=== PATIENT | male | born 1935 | race Caucasian/White ===

== ENCOUNTER 2020-10-10 10:29 | Outpatient (CLI) | payer MEDICARE, SELFPAY ==
--- NOTE | 2020-10-10 10:49 | XRR_ITS ---
PROCEDURE INFORMATION: Exam: XR Cervical Spine Exam date and time: 10/10/2020 10:49 AM Age: 84 years old Clinical indication: Neck pain; Additional info: Chronic neck pain/kyphosis, thoracic region TECHNIQUE: Imaging protocol: XR of the cervical spine. Views: 6 or more views. COMPARISON: CR Chest 2 views* [id number] 12/15/2018 6:03 PM FINDINGS: Bones/joints: Osteopenia and degenerative change. No instability. Soft tissues: Unremarkable. XR/XR cervical spine min 6V [id number] IMPRESSION: Osteopenia and degenerative change.
== END 2020-10-10 10:30 | disposition home or self-care (01) ==
PROVIDERS: PCP Electrodiagnostic Medicine; Visit Provider Electrodiagnostic Medicine
DX: M54.2 Cervicalgia (principal); M40.14 Other secondary kyphosis, thoracic region; I10 Essential (primary) hypertension; E03.9 Hypothyroidism, unspecified; D18.03 Hemangioma of intra-abdominal structures; M85.88 Other specified disorders of bone density and structure, other site
CPT/HCPCS: 72052

== ENCOUNTER 2020-10-28 09:13 | Outpatient (CLI) | payer MEDICARE, SELFPAY ==
--- NOTE | 2020-10-28 09:36 | MR_ITS ---
WS: [id number] MRI CERVICAL SPINE NONCONTRAST TECHNIQUE: Sagittal T1, T2 and STIR imaging. Axial T2, gradient, and fiesta imaging. CLINICAL INFORMATION: CERVICAL RADICULOPATHY/ CHRONIC NECK PAIN COMPARISON: None. FINDINGS: Straightening of the normal cervical lordosis. Cord signal is normal. No high-grade central canal juan nosis. Slight listhesis C5 on C6. Disc space narrowing worse at C5-C6 and C6-C7. C2-C3: Mild left and no significant right foraminal narrowing. Mild left facet arthropathy. C3-C4: Mild disc bulging with osteophytic ridging. Moderate left and mild right bony foraminal narrow ing. Moderate left facet arthropathy. C4-C5: Mild disc bulging with osteophytic ridging. Mild central canal stenosis. Moderate bilateral zo ny foraminal narrowing with moderate facet arthropathy. C5-C6: Slight retrolisthesis C5 on C6 with mild central canal stenosis. Moderate bilateral bony fora viviana narrowing. Moderate facet arthropathy. C6-C7: Mild disc bulging with osteophytic ridging. Mild left greater than right bony foraminal narrow ing. Moderate facet arthropathy. C7-T1: Grade 1 anterolisthesis C7 on T1. Tiny central protrusion. Spinal canal is patent. Mild bilate ral bony foraminal narrowing. Moderate facet arthropathy. Mild degenerative edema at the C1-2 articulation. MR/MR cervical spin wo con* [id number] IMPRESSION: 1. Straightening of the normal cervical lordosis with moderate spondylitic jocelyn nges. 2. Slight retrolisthesis C5 on C6. Slight anterolisthesis C7 on T1. 3. Multilevel mild to moderate bony foraminal narrowing worse at left C3-4, bi lateral C4-5, and left greater than right C5-C6. 4. Mild central canal stenosis C4-C5 and C5-C6.
== END 2020-10-28 09:14 | disposition home or self-care (01) ==
LOC: RADWPI 09:15
PROVIDERS: PCP Electrodiagnostic Medicine; Visit Provider Electrodiagnostic Medicine
DX: M54.12 Radiculopathy, cervical region (principal); M54.2 Cervicalgia; M40.14 Other secondary kyphosis, thoracic region; M48.02 Spinal stenosis, cervical region
CPT/HCPCS: 72141

== ENCOUNTER 2020-11-20 06:00 | Outpatient (RCR) | payer MEDICARE, SELFPAY | END 2020-12-20 23:59 | disposition home or self-care (01) | LOC: SPT 06:00 | PROVIDERS: PCP Electrodiagnostic Medicine; Referring Provider Electrodiagnostic Medicine; Visit Provider Electrodiagnostic Medicine | DX: M54.12 Radiculopathy, cervical region (principal); M54.2 Cervicalgia | CPT/HCPCS: 97110; 97162 ==

== ENCOUNTER 2020-12-21 06:00 | Outpatient (RCR) | payer MEDICARE, SELFPAY | END 2021-01-19 23:59 | disposition home or self-care (01) | LOC: SPT 06:00 | PROVIDERS: PCP Electrodiagnostic Medicine; Referring Provider Electrodiagnostic Medicine; Visit Provider Electrodiagnostic Medicine | DX: G89.29 Other chronic pain (principal); M54.2 Cervicalgia; M54.12 Radiculopathy, cervical region | CPT/HCPCS: 97110 ==

== ENCOUNTER → 2022-03-21 09:50 | Outpatient (BNVA) | payer MEDICARE, SELFPAY | PROVIDERS: PCP Electrodiagnostic Medicine; Visit Provider Podiatrist Foot & Ankle Surgery | DX: M79.671 Pain in right foot (principal); M79.89 Other specified soft tissue disorders | CPT/HCPCS: 73650; 99204 ==

== ENCOUNTER → 2022-03-27 15:55 | Outpatient (BNVA) | payer MEDICARE, SELFPAY | PROVIDERS: PCP Electrodiagnostic Medicine; Visit Provider Podiatrist Foot & Ankle Surgery | DX: M79.89 Other specified soft tissue disorders (principal); M79.671 Pain in right foot | CPT/HCPCS: 99213 ==

== ENCOUNTER → 2022-09-25 13:25 | Outpatient (BNVA) | payer MEDICARE, SELFPAY | PROVIDERS: PCP Electrodiagnostic Medicine; Visit Provider Podiatrist Foot & Ankle Surgery | DX: M79.671 Pain in right foot (principal); M79.89 Other specified soft tissue disorders; B35.3 Tinea pedis | CPT/HCPCS: 73650; 99213 ==

== ENCOUNTER → 2022-11-02 10:57 | Outpatient (BNVA) | payer MEDICARE, SELFPAY | PROVIDERS: PCP Electrodiagnostic Medicine; Visit Provider Podiatrist Foot & Ankle Surgery | DX: M79.671 Pain in right foot (principal); M79.89 Other specified soft tissue disorders | CPT/HCPCS: 99213 ==

== ENCOUNTER → 2022-11-09 11:17 | Outpatient (BNVA) | payer MEDICARE, SELFPAY | PROVIDERS: PCP Electrodiagnostic Medicine; Visit Provider Podiatrist Foot & Ankle Surgery | DX: M79.671 Pain in right foot (principal); M79.89 Other specified soft tissue disorders | CPT/HCPCS: 99214 ==

== ENCOUNTER 2022-11-21 05:46 | Day surgery (SDC) | payer MEDICARE, SELFPAY ==
[2022-11-20 10:54] VITALS: BMI 20.7
--- NOTE | 2022-11-21 05:56 | ECG_ITS ---
[facility] Test Date: 2022-11-21 Pat Name: Geoff Freeman Department: Room: Gender: Male Sales Team Member: : [id number] Requested By: Jamal Josue Order Number: [id number] Ursula MD: Adela Matos M.D. Measurements Intervals [place] Rate: 60 P: 25 [place]: 269 QRS: -86 QRSD: 175 T: 84 QT: 482 QTc: 482 Interpretive Statements ELECTRONIC VENTRICULAR PACEMAKER ABNORMAL RHYTHM ECG No previous ECG available for comparison Electronically Signed On 11-21-2022 23:30:48 CDT by Adela Matos M.D. [id number]
[2022-11-21 06:01] VITALS: BMI 20.7
[2022-11-21 06:07] VITALS: BP 119/62; PULSE 61; RESP 17; TEMP 36.3; O2SAT 97
[2022-11-21] MEDS: acetaminophen 1,000 MG/100 ML PIGGYBACK 400 MG IV (06:29)
[2022-11-21] MEDS: sodium chloride 0.9% 1,000 ML 30 ML IV (06:31)
--- NOTE | 2022-11-21 06:43 | W.PM.OPSUD ---
Surgery/Procedure H&P Update DATE OF PROCEDURE: November 21, 2022 DATE H&P PERFORMED: 11/09/22 CHANGES TO PREVIOUS DOCUMENTATION: No changes PREOP DIAGNOSIS: Right foot soft tissue mass PLANNED PROCEDURE: Operation Date: 11/21/22 07:00 Proposed Procedures p Right foot soft tissue mass excision greater than 1.5 cm CPT 93036,?M79.9(Right) - John Forde DPM
[2022-11-21] MEDS: ceFAZolin 2,000 MG in sodium chloride 0.9% (plus) 50 ML 100 MG IV (07:00)
[2022-11-21 07:39] VITALS: BP 95/54; PULSE 60; RESP 15; TEMP 36.2; O2SAT 94
--- NOTE | 2022-11-21 07:41 | PC.NURSE ---
Pt arrived to PACU, resting comfortably, O2 at 6L/min via simple mask in place. Dressing and post op shoe to right foot C/D/I, right toes p/w/d, cap refill < 3 seconds. FOB elevated.
[2022-11-21 07:44] VITALS: BP 109/61; PULSE 61; RESP 18; O2SAT 95
[2022-11-21 07:49] VITALS: BP 115/65; PULSE 60; RESP 17; O2SAT 93
[2022-11-21 07:54] VITALS: BP 99/59; PULSE 64; RESP 17; TEMP 36.6; O2SAT 92
[2022-11-21 08:02] VITALS: BP 102/61; PULSE 61; RESP 16; TEMP 36; O2SAT 92
--- NOTE | 2022-11-21 09:04 | ANES.PREANE2 ---
Pre-Anesthetic Assessment Height/Weight: Height 1.75 m Weight 63.503 kg Temp Pulse Resp BP Pulse Ox O2 Del Method O2 Flow Rate 96.8 F L 61 16 102/61 92 Room Air 6 11/21/22 08:02 11/21/22 08:02 11/21/22 08:02 11/21/22 08:02 11/21/22 08:02 11/21/22 07:54 11/21/22 07:44 Preop Diagnosis: Right foot soft tissue mass Operation Date: 11/21/22 07:00 Proposed Procedures p Right foot soft tissue mass excision greater than 1.5 cm CPT 26130,?M79.9(Right) - John Forde DPM Familial anesthetic complications: none Was Beta Erika taken within 24 hours: N/A Was Clonidine taken within 24 hours: N/A Last intake: Intake Last Liquid Date 11/20/22 Last Liquid Time 20:00 Last Solid Date 11/20/22 Last Solid Time 20:00 Social No alcohol and No tobacco Exam alert, oriented x 3, clear to auscultation bilaterally and regular rate & rhythm Airway Submandibular: within normal limits Cervical ROM: within normal limits Mallampati: Class II Dentition: false CV/HEM Arrythmia and Murmur Pacemaker, h/o MVR Metabolic Thyroid Disease Anesthetic Plan ASA status: 3 Anesthesia: MAC Medications/Allergies Home Medications Medication Instructions Recorded Confirmed Last Taken Type ascorbic acid (vitamin C) 500 mg 500 mg PO 1XD 06/29/20 11/20/22 11/19/22 History capsule cholecalciferol (vitamin D3) 10 10 mcg PO DAILY 06/29/20 11/20/22 11/19/22 History mcg (400 unit) capsule coenzyme Q10 100 mg capsule 100 mg PO DAILY 06/29/20 11/20/22 11/19/22 History (CoQ-10) levothyroxine 100 mcg tablet 100 mcg PO DAILY 06/29/20 11/20/22 11/20/22 History magnesium oxide 500 mg tablet 500 mg PO DAILY 06/29/20 11/20/22 11/19/22 History mecobalamin (vitamin B12) 1,000 1,000 mcg sublingual DAILY 06/29/20 11/20/22 11/19/22 History mcg disintegrating tablet,sublingual sertraline 50 mg tablet (Zoloft) 50 mg PO DAILY 06/29/21 11/20/22 11/19/22 History apixaban 2.5 mg tablet (Eliquis) 2.5 mg PO BID 03/05/22 11/20/22 11/20/22 History tramadol 50 mg tablet 50 mg PO Q8H PRN pain #20 tabs 11/21/22 Unknown Rx Allergies Allergy/AdvReac Type Severity Reaction Status Date / Time No Known Allergies Allergy Verified 11/20/22 10:46 Current Medications Generic Name Dose Route Start Last Admin Trade Name Freq PRN Reason Stop Dose Admin Sodium Chloride 1,000 mls @ 30 mls/hr 11/21/22 06:00 11/21/22 06:31 Sodium Chloride 0.9% IV 11/22/22 05:59 30 mls/hr .Q24H QUAN Administration PFSH Anesthesia Medical History Hypothyroid Kyphosis Surgical History H/O mitral valve repair History of appendectomy History of inguinal hernia repair right Social History Smoking and tobacco status: never smoked Alcohol intake: current Alcohol intake frequency: holidays/special occasions only Alcohol type: wine Substance/Drug Use: never Data Anesthesia Cardiac Studies: No Data to Display
--- NOTE | 2022-11-21 09:43 | P.OP_ITS ---
Operative Report Date of procedure: November 21, 2022 Pre-op diagnosis: Preop Diagnosis Right foot soft tissue mass Post-op diagnosis: Same Post-op findings: Darkened and discolored indurated soft tissue mass with associated adipose tissue measuring approximate 3.0 x 2.0 cm well-circumscribed edges. No remaining mass remained Procedure done: Right foot soft tissue mass excision greater than 1.5 cm CPT 38080 Implants: None Specimens removed/disposition: Right foot soft tissue mass, aerobic and anaerobic cultures Pathology: Soft tissue mass right foot sent to pathology Surgeon: Jia Jaime.P.Kenan Estimated blood loss: Less than 10 cc Complications: None Findings: See above Procedure: Patient is a 86-year-old male that has a history of right foot soft tissue mass. The patient has had the aforementioned chief complaint for some time. Conservative treatment measures have been attempted and the patient has opted for surgical intervention at this time. A lengthy discussion regarding the procedure, including risks and complications has been had with the patient and is noted in the recent clinic note. Written and verbal consent have been obtained. All patient questions have been answered to the patient?s satisfaction . No written or verbal guarantees have been given or implied. The patient has been NPO since midnight. The history has been reviewed and the history and physical is current. The signed consent was confirmed and placed in the patient chart. Patient imaging has been reviewed and is consistent with the diagnosis. Under mild sedation, the patient was brought into the operating room and placed on the table in the supine position. IV antibiotics were given by the anesthesia team as preoperative surgical prophylaxis. IV sedation was then performed by the anesthesiateam. A local field block was then performed using 0.5% Marcaine plain. A pneumatic tourniquet was then placed about the right ankle. The operative extremity was then prepped and draped in the usual fashion. The extremity was then elevated and exsanguinated before the tourniquet was inflated to 250 mmHg. After inflation, the following procedure was then performed. Attention was directed to the lateral aspect of the right heel where a firm palpable nodule was appreciated. A 3.5 cm incision was made overlying this area. Dissection was carried down through subcutaneous tissue to the level of the soft tissue mass which was clearly visualized. Using blunt dissection it was dissected out circumferentially to expose the mass in total. It was noted to be dark and and discoloration and indurated but well-defined. It was then removed from the operative field to be sent to pathology for specimen. Cultures aerobic and anaerobic were taken at this point. The site was examined and no further soft tissue mass remained. The site was then irrigated with copious amounts of sterile saline before attention was directed to closure. Skin was closed with 3-0 nylon in horizontal mattress fashion. The tourniquet was let down and good hyperemic response was noted to all digits of the right foot. The incision site was dressed with Xeroform, 4 x 4 gauze, Kerlix and Abdiaziz. The patient tolerated the procedure and anesthesia well and without complication. The patient was transported from the operating room to the recovery room with vital signs stable and vascular status intact to all digits of the right foot. The patient was given both written and verbal instructions to remain weightbearing as tolerated in postop shoe to the operative extremity, to keep dressings/splint clean, dry and intact and to take pain medication as directed. The patient will follow-up in the outpatient setting at their scheduled appointment. The patient was discharged with my personal number and was instructed to call if any questions or issues should arise. They were discharged home once anesthesia criteria was met.
--- NOTE | 2022-11-21 15:33 | ANE.PACU2 ---
Inpatient post-anesthesia follow up: Airway intact: Yes Vital signs: Temperature 96.8 F Pulse Rate 61 Respiratory Rate 16 Blood Pressure 102/61 Pulse Oximetry 92 Oxygen Delivery Me thod Room Air Oxygen Flow Rate 6 Fraction of Inspir ed Oxygen Hydration adequate: Yes Nausea and vomiting: No Pain level: 1 Mental status: Baseline
== END 2022-11-21 09:03 | disposition home or self-care (01) ==
PROVIDERS: PCP Electrodiagnostic Medicine; Visit Provider Podiatrist Foot & Ankle Surgery
PROC: (CPT 28039; principal; 2022-11-21 07:00)
DX: M11.271 Other chondrocalcinosis, right ankle and foot (principal); Z95.0 Presence of cardiac pacemaker; Z79.01 Long term (current) use of anticoagulants
CPT/HCPCS: 28039; 87070; 87075; 87205; 88307; 93005; J0131; J0690; J2704; J3010; J3490; J7030; L3260

== ENCOUNTER → 2022-12-05 15:08 | Outpatient (BNVA) | payer MEDICARE, SELFPAY | PROVIDERS: PCP Electrodiagnostic Medicine; Visit Provider Podiatrist Foot & Ankle Surgery | DX: M79.89 Other specified soft tissue disorders; M79.671 Pain in right foot | CPT/HCPCS: 99024 ==

== ENCOUNTER 2022-12-10 20:00 | Outpatient (CLI) | payer MEDICARE, SELFPAY | END 2022-12-10 20:01 | disposition home or self-care (01) | LOC: SLEEP 12-11 06:38 | PROVIDERS: PCP Electrodiagnostic Medicine; Visit Provider Electrodiagnostic Medicine | DX: G47.10 Hypersomnia, unspecified (principal) | CPT/HCPCS: 95810 ==

== ENCOUNTER → 2022-12-12 15:20 | Outpatient (BNVA) | payer MEDICARE, SELFPAY | PROVIDERS: PCP Electrodiagnostic Medicine; Visit Provider Podiatrist Foot & Ankle Surgery | DX: M79.89 Other specified soft tissue disorders | CPT/HCPCS: 99024 ==

== ENCOUNTER → 2023-01-03 14:04 | Outpatient (BNVA) | payer MEDICARE, SELFPAY | PROVIDERS: PCP Electrodiagnostic Medicine; Visit Provider Nurse Practitioner Family | DX: L57.0 Actinic keratosis (principal); Z85.828 Personal history of other malignant neoplasm of skin; L82.1 Other seborrheic keratosis; L82.0 Inflamed seborrheic keratosis; L81.4 Other melanin hyperpigmentation; L57.8 Other skin changes due to chronic exposure to nonionizing radiation; D22.5 Melanocytic nevi of trunk | CPT/HCPCS: 17000; 17003; 17110; 99213 ==

== ENCOUNTER → 2023-04-24 13:21 | Outpatient (BNVA) | payer MEDICARE, SELFPAY | PROVIDERS: PCP Electrodiagnostic Medicine; Visit Provider Nurse Practitioner Family | DX: Z85.828 Personal history of other malignant neoplasm of skin (principal); L57.0 Actinic keratosis; L82.1 Other seborrheic keratosis; L81.4 Other melanin hyperpigmentation; L57.8 Other skin changes due to chronic exposure to nonionizing radiation | CPT/HCPCS: 17000; 17110; 99213 ==

== ENCOUNTER → 2023-10-01 13:49 | Outpatient (BNVA) | payer MEDICARE, SELFPAY | PROVIDERS: Visit Provider Nurse Practitioner Family | DX: L57.0 Actinic keratosis (principal); L82.0 Inflamed seborrheic keratosis; L81.4 Other melanin hyperpigmentation; L57.8 Other skin changes due to chronic exposure to nonionizing radiation; D22.5 Melanocytic nevi of trunk; Z85.828 Personal history of other malignant neoplasm of skin | CPT/HCPCS: 17000; 17110; 99213 ==

== ENCOUNTER 2023-10-03 06:00 | Outpatient (RCR) | payer MEDICARE, SELFPAY | END 2023-10-20 23:59 | disposition home or self-care (01) | LOC: SPT 06:00 | PROVIDERS: Visit Provider Electrodiagnostic Medicine | DX: M40.294 Other kyphosis, thoracic region (principal) | CPT/HCPCS: 97110; 97161 ==

== ENCOUNTER 2023-10-21 06:00 | Outpatient (RCR) | payer MEDICARE, SELFPAY | END 2023-11-20 23:59 | disposition home or self-care (01) | LOC: SPT 06:00 | PROVIDERS: Visit Provider Electrodiagnostic Medicine | DX: M40.294 Other kyphosis, thoracic region (principal) | CPT/HCPCS: 97110 ==

== ENCOUNTER → 2023-12-03 14:34 | Outpatient (BNVA) | payer MEDICARE, SELFPAY | PROVIDERS: Visit Provider Nurse Practitioner Family | DX: B35.3 Tinea pedis (principal); L81.4 Other melanin hyperpigmentation; L57.8 Other skin changes due to chronic exposure to nonionizing radiation; D22.5 Melanocytic nevi of trunk; L57.0 Actinic keratosis; Z85.828 Personal history of other malignant neoplasm of skin | CPT/HCPCS: 17000; 99214 ==

== ENCOUNTER → 2024-03-10 15:27 | Outpatient (BNVA) | payer MEDICARE, SELFPAY | PROVIDERS: Visit Provider Nurse Practitioner Family | DX: B35.1 Tinea unguium (principal); B35.3 Tinea pedis; L81.4 Other melanin hyperpigmentation; L57.8 Other skin changes due to chronic exposure to nonionizing radiation; D22.5 Melanocytic nevi of trunk; L82.1 Other seborrheic keratosis; L85.3 Xerosis cutis; Z85.828 Personal history of other malignant neoplasm of skin; L57.0 Actinic keratosis | CPT/HCPCS: 17000; 99214 ==

== ENCOUNTER → 2024-07-09 13:45 | Outpatient (BNVA) | payer MEDICARE, SELFPAY | PROVIDERS: Visit Provider Nurse Practitioner Family | DX: L82.1 Other seborrheic keratosis (principal); L81.4 Other melanin hyperpigmentation; L57.8 Other skin changes due to chronic exposure to nonionizing radiation; D22.5 Melanocytic nevi of trunk; L85.3 Xerosis cutis; Z08 Encounter for follow-up examination after completed treatment for malignant neoplasm; Z85.828 Personal history of other malignant neoplasm of skin; L57.0 Actinic keratosis | CPT/HCPCS: 17000; 99214 ==

== ENCOUNTER → 2024-11-09 13:55 | Outpatient (BNVA) | payer MEDICARE, SELFPAY | PROVIDERS: Visit Provider Nurse Practitioner Family | DX: L89.151 Pressure ulcer of sacral region, stage 1 (principal); L73.9 Follicular disorder, unspecified; L81.4 Other melanin hyperpigmentation; L57.8 Other skin changes due to chronic exposure to nonionizing radiation; D22.5 Melanocytic nevi of trunk; L85.3 Xerosis cutis; L82.1 Other seborrheic keratosis; Z08 Encounter for follow-up examination after completed treatment for malignant neoplasm; Z85.828 Personal history of other malignant neoplasm of skin; D48.5 Neoplasm of uncertain behavior of skin; L57.0 Actinic keratosis | CPT/HCPCS: 11102; 17000; 99214 ==

== ENCOUNTER → 2024-12-09 10:04 | Outpatient (BNVA) | payer MEDICARE, SELFPAY | PROVIDERS: Visit Provider Dermatology | DX: L82.1 Other seborrheic keratosis (principal); D18.01 Hemangioma of skin and subcutaneous tissue; Z08 Encounter for follow-up examination after completed treatment for malignant neoplasm; Z85.828 Personal history of other malignant neoplasm of skin; C44.519 Basal cell carcinoma of skin of other part of trunk; L57.0 Actinic keratosis | CPT/HCPCS: 17000; 17262; 99213 ==

== ENCOUNTER → 2025-03-25 15:03 | Outpatient (BNVA) | payer MEDICARE, SELFPAY | PROVIDERS: Visit Provider Nurse Practitioner Family | DX: L98.8 Other specified disorders of the skin and subcutaneous tissue (principal); L57.8 Other skin changes due to chronic exposure to nonionizing radiation; L81.4 Other melanin hyperpigmentation; L82.1 Other seborrheic keratosis; D22.5 Melanocytic nevi of trunk; Z08 Encounter for follow-up examination after completed treatment for malignant neoplasm; Z85.828 Personal history of other malignant neoplasm of skin; L57.0 Actinic keratosis | CPT/HCPCS: 17000; 99214 ==